=== PATIENT | male | born 1975 | race Caucasian/White ===

== ENCOUNTER 2017-05-06 13:29 | Emergency (ER) | payer OTHER ==
[~2017-05-06] VITALS: Ht 180.3 cm; Wt 129.3 kg
[2017-05-06] MEDS ORDERED: ZOFRAN ODT4 MG SL (16:30)
[2017-05-06] MEDS ORDERED: Motrin,Rufen800 MG PO (16:30)
== END 2017-05-06 16:56 | disposition home or self-care (01) ==
LOC: ED 13:29
DX: S01.01XA Laceration without foreign body of scalp, initial encounter (principal); R59.1 Generalized enlarged lymph nodes; M25.511 Pain in right shoulder; M25.512 Pain in left shoulder; R11.0 Nausea; W20.8XXA Other cause of strike by thrown, projected or falling object, initial encounter; Y93.89 Activity, other specified; Y92.69 Other specified industrial and construction area as the place of occurrence of the external cause; Y99.0 Civilian activity done for income or pay